=== PATIENT | female | born 1965 | race African-American/Black ===

== ENCOUNTER 2021-01-06 14:34 | Observation (INO) ==
[2021-01-06 16:12] LABS: Bilirubin,Urine Negative (Negative); Blood, Urine Negative (Negative); Glucose,Urine (UA) Negative (Negative); Ketones,Urine Negative (Negative); Mucus,Urine Occasional /LPF (Occasional); Nitrite,Urine Negative (Negative); Protein,Urine Negative; RBC,Urine 1 /HPF (0-4); Squamous Epithelial Cell,Urine Occasional /HPF (0-10); Urine Appearance CLEAR (Clear); Urine Color Yellow (Yellow); Urine Specific Gravity 1.015 (1.001-1.035); Urine Urobilinogen < 2.0 EU/DL (0.2-1.0); WBC,Urine 1 /HPF (0-6)
[2021-01-06 17:07] LABS: Basophils % 0.9 % (0.0-0.8); Eosinophils % 0.9 % (0.00-10.9); Hematocrit 38.1 VOL% (35.7-47.0); Hemoglobin 12.5 GM/DL (12.0-16.0); Immature Granulocytes % 1.3 %; Immature Granulocytes Absolute 0.03 #; Lymphocytes # 0.5 10*3/uL (1.4-4.0); Lymphocytes % 20.3 % (21.3-54.2); Mean Corpuscular HGB Conc 32.8 GM/DL (32-36); Mean Corpuscular Volume 91.1 FL (87-102); Mean Platelet Volume 10.2 FL (9.6-12.0); Monocytes % 13.8 % (1.7-12.7); NRBC # 0.02 10*3/uL; Neutrophils % 62.8 % (38.7-73.9); Platelet Count 137 T/CUMM (130-400); Red Blood Count 4.18 MC/CUMM (3.8-5.5); Red Cell Distribution Width 18.6 % (9.3-17.3); White Blood Count 2.3 T/CUMM (4-12)
[2021-01-06 17:27] LABS: Alanine Aminotransferase 42 U/L (13-56); Albumin 3.5 G/DL (3.4-5.0); Alkaline Phosphatase 65 U/L (45-117); Aspartate Amino Transferase 28 U/L (0-37); Blood Urea Nitrogen 16 MG/DL (7-18); Calcium 9.4 MG/DL (8.5-10.1); Carbon Dioxide 28 MMOL/L (21-32); Estimated Glom Filtration Rate 72 ML/MIN; Glucose 156 MG/DL (74-106); Osmolality,Calculated 273.1 MOS/KG (273-304); Potassium 3.7 MMOL/L (3.5-5.1); Sodium 135 MMOL/L (136-145); Total Protein 7.4 G/DL (6.4-8.3)
[2021-01-06] MEDS ORDERED: SODIUM CHLORIDE 0.9% 1,000 ML IV STA ×2 (17:32→19:38)
[2021-01-06] MEDS ORDERED: ACETAMINOPHEN 500 MG TABLET PO STA (17:57)
[2021-01-06] MEDS ORDERED: cefTRIAXone 1,000 MG in SODIUM CHLORIDE 0.9% 100 ML IV STA (19:10)
[2021-01-06] MEDS ORDERED: IBUPROFEN 800 MG TABLET PO STA (19:38)
[2021-01-06] MEDS ORDERED: diphenhydrAMINE CAP 25 MG CAPSULE PO PRN (20:21)
[2021-01-06] MEDS ORDERED: GLUCAGON 1 MG VIAL IM PRN (20:21)
[2021-01-06] MEDS ORDERED: NICOTINE 21 MG/24 HR PATCH TRANSDERM PRN (20:21)
[2021-01-06] MEDS ORDERED: ONDANSETRON 4 MG/2 ML VIAL IV PRN (20:21)
[2021-01-06] MEDS ORDERED: DEXTROSE 50% 25 GM/50 ML VIAL IV PRN (20:21)
[2021-01-06 20:44] LABS: Ferritin 1110.7 ng/ml (8-252)
[2021-01-06] MEDS: ACETAMINOPHEN 325 MG TABLET PO PRN (22:15)
[2021-01-07] MEDS ORDERED: ALBUTEROL/IPRATROPIUM 3 ML NEB RESP TX SCH (01:00)
[2021-01-07] MEDS ORDERED: CYCLOBENZAPRINE 10 MG TABLET PO PRN (01:04)
[2021-01-07] MEDS: DEXAMETHASONE 4 MG/1 ML VIAL IV SCH (08:48)
[2021-01-07] MEDS: CETIRIZINE 10 MG TABLET PO SCH (08:48)
[2021-01-07] MEDS: DULoxetine 30 MG CAPSULE PO SCH (08:48)
[2021-01-07] MEDS: AZITHROMYCIN 250 MG TABLET PO SCH (08:48)
[2021-01-07] MEDS: TRIAMTERENE/HCTZ 37.5-25 MG TABLET PO SCH (08:48)
[2021-01-07] MEDS: FLUTICASONE 50 MCG NASAL SPRAY 16 GM BOTTLE BOTH NARES SCH (08:49)
[2021-01-07] MEDS: ACETAMINOPHEN 325 MG TABLET PO PRN (11:20)
[2021-01-07] MEDS ORDERED: ENOXAPARIN 120 MG/0.8 ML SYRINGE SUBCUT SCH (11:30)
[2021-01-07] MEDS ORDERED: cefTRIAXone 1,000 MG in SYRINGE 1 EACH IV SCH (21:00)
[2021-01-08 06:26] LABS: Basophils % 0.9 % (0.0-0.8); Eosinophils % 0.4 % (0.00-10.9); Hematocrit 33.6 VOL% (35.7-47.0); Hemoglobin 11.7 GM/DL (12.0-16.0); Lymphocytes # 0.8 10*3/uL (1.4-4.0); Lymphocytes % 36.8 % (21.3-54.2); Mean Corpuscular HGB Conc 34.8 GM/DL (32-36); Mean Corpuscular Volume 88.2 FL (87-102); Mean Platelet Volume 10.5 FL (9.6-12.0); Monocytes % 18.4 % (1.7-12.7); Neutrophils % 43.5 % (38.7-73.9); Platelet Count 95 T/CUMM (130-400); Red Blood Count 3.81 MC/CUMM (3.8-5.5); Red Cell Distribution Width 17.9 % (9.3-17.3); White Blood Count 2.2 T/CUMM (4-12)
[2021-01-08 06:44] LABS: Calcium 8.7 MG/DL (8.5-10.1); Osmolality,Calculated 271.2 MOS/KG (273-304); Potassium 3.3 MMOL/L (3.5-5.1)
[2021-01-08 06:56] LABS: Band Neutrophils 1 % (0-10); Hypochromasia 1+; Lymphocytes 31 % (20-55); Microcytosis 1+; Platelet Estimate Decreased; Segmented Neutrophils 48 % (50-85); Total Cells Counted 100
[2021-01-08 06:57] LABS: Atypical Lymphocytes Few
[2021-01-08] MEDS ORDERED: POTASSIUM CHLORIDE 20 MEQ TABLET PO ONE (07:37)
[2021-01-08] MEDS: CETIRIZINE 10 MG TABLET PO SCH (09:01)
[2021-01-08] MEDS: AZITHROMYCIN 250 MG TABLET PO SCH (09:01)
[2021-01-08] MEDS: DEXAMETHASONE 4 MG/1 ML VIAL IV SCH (09:02)
[2021-01-08] MEDS: DULoxetine 30 MG CAPSULE PO SCH (09:03)
[2021-01-08] MEDS: TRIAMTERENE/HCTZ 37.5-25 MG TABLET PO SCH (09:08)
[2021-01-08] MEDS: FLUTICASONE 50 MCG NASAL SPRAY 16 GM BOTTLE BOTH NARES SCH (09:13)
[2021-01-08 11:25] VITALS: BP 109/72
== END 2021-01-08 13:46 | disposition home or self-care (01) ==
LOC: N.ED 14:34 → N.EDINP 14:34 → N.2E 01-07 04:13
PROVIDERS: ADMIT Internal Medicine; ATTEND Internal Medicine